=== PATIENT | female | born 1955 | race Caucasian/White ===

== ENCOUNTER → 2018-12-24 | Outpatient (CLI) | payer OTHER ==
--- NOTE | 2018-12-24 16:05 | XR ---
EXAMINATION TYPE: XR chest 2V DATE OF EXAM: 12/24/2018 COMPARISON: Prior chest x-ray 07/31/2013 HISTORY: COPD and shortness of breath TECHNIQUE: Frontal and lateral views of the chest are obtained. FINDINGS: There is hyperinflation compatible with underlying COPD. Patient is rotated. Aorta is dense . Thoracic spondylosis is present. Calcification in left axilla region is stable. There is no focal a ir space opacity, pleural effusion, or pneumothorax seen. The cardiac silhouette size is within norm al limits. The osseous structures are intact. IMPRESSION: No acute cardiopulmonary process.
== END | disposition home or self-care (01) ==
LOC: RADXRYALE 14:06
PROVIDERS: ATTEND Physician Assistant Medical
DX: J44.9 Chronic obstructive pulmonary disease, unspecified (principal); R06.02 Shortness of breath
CPT/HCPCS: 71046

== ENCOUNTER → 2020-04-27 | Outpatient (CLI) | payer MEDICARE ==
--- NOTE | 2020-04-28 06:55 | US ---
EXAMINATION TYPE: US thyroid st tissue head/neck DATE OF EXAM: 04/27/2020 COMPARISON: NONE CLINICAL HISTORY: E03.9 Hypothyroidism, unspecified. Hypothyroidism, patient on thyroid meds GLAND SIZE: Right Lobe: 3.5 x 1.5 x 1.4 cm Overall Parenchyma: heterogenous Left Lobe: 3.3 x 1.4 x 1.4 cm Overall Parenchyma: heterogeneous Isthmus Thickness: 0.2 cm NODULES RIGHT: # of nodules measured on right: 0 LEFT: # of nodules measured on left: 0 ISTHMUS: # of nodules measured in the isthmus: 0 Bilateral neck scanned, no evidence of lymphadenopathy. Heterogeneous small size thyroid without discrete solid or cystic nodule. IMPRESSION: As above.
== END | disposition home or self-care (01) ==
LOC: RADUSWWP 16:08
PROVIDERS: ATTEND Family Medicine
DX: R93.89 Abnormal findings on diagnostic imaging of other specified body structures (principal); E03.9 Hypothyroidism, unspecified
CPT/HCPCS: 76536

== ENCOUNTER → 2020-12-01 | Outpatient (CLI) | payer MEDICARE ==
--- NOTE | 2020-12-02 08:01 | BD ---
EXAMINATION TYPE: Axial Bone Density DATE OF EXAM: 12/01/2020 COMPARISON: NONE CLINICAL HISTORY: Disorder of bone. Height: 64.5 Weight: 101.5 FRAX RISK QUESTIONS: Alcohol (3 or more units per day): no Family History (Parent hip fracture): no Glucocorticoids (More than 3mos): no (Ex: prednisone, prednisolone, methylprednisolone, dexamethasone, and hydrocortisone). History of Fracture in Adulthood: yes Secondary Osteoporosis: 1. Type 1 Diabetes: no 2. Hyperthyroidism: no 3. Menopause before 45: no 4. Malnutrition: no 5. Chronic liver disease: no Rheumatoid Arthritis: no Current Tobacco Use: yes RISK FACTORS HISTORY OF: Surgery to Spine/Hip(right/left)/Wrist (right/left): no Family History of Osteoporosis: yes Active: no Diet low in dairy products/other sources of calcium: yes Postmenopausal woman: age 49 Lost more than 2 inches in height since high school: no MEDICATIONS: Lexapro, lisinopril, asthma meds, vitamins Thyroid Medications: synthroid How Lon years Additional History: EXAM MEASUREMENTS: Bone mineral densitometry was performed using the [employer] System. Bone mineral density as measured about the Lumbar spine is: ----- L1-L4(G/cm2): 0.744 T Score Values are as follows: ----- L2: -4.0 ----- L3: -3.0 ----- L4: -3.5 ----- L1-L4: -3.6 Bone mineral density : baseline Bone mineral density about the R hip (g/cm2): 0.470 Bone mineral density about the L hip (g/cm2): 0.526 T Score values are as follows: -----R Neck: -4.1 -----L Neck: -3.7 -----R Total: -4.4 -----L Total: -4.0 Bone mineral density : baseline IMPRESSION: Osteoporosis (T Score less than -2.5). There is increased fracture risk and therapy is usually indicated based on age. Re-Screen 1-2 years. NOTE: T-SCORE=SD OF THE YOUNG ADULT MEAN.
--- NOTE | 2020-12-04 11:09 | MM ---
Reason for exam: screening (asymptomatic). History: Patient is postmenopausal. Physical Findings: A clinical breast exam by your physician is recommended on an annual basis and results should be correlated with mammographic findings. MG 3D Screening Mammo W/Cad Bilateral CC and MLO view(s) were taken. There are scattered fibroglandular densities. Two nodules right upper slightly outer quadrant middle depth. Left focal asymmetry upper outer quadrant middle depth. ASSESSMENT: Incomplete: need additional imaging evaluation, BI-RAD 0 RECOMMENDATION: Special view mammogram of both breasts. If lesion persists on supplemental views, image directed ultrasound is recommended. [facility] will attempt to contact patient to return for supplemental views and ultrasound if indicated.
== END | disposition home or self-care (01) ==
LOC: RADMAMWWP 13:12
PROVIDERS: ATTEND Family Medicine
DX: Z12.31 Encounter for screening mammogram for malignant neoplasm of breast (principal); Z13.820 Encounter for screening for osteoporosis; M81.0 Age-related osteoporosis without current pathological fracture; Z78.0 Asymptomatic menopausal state
CPT/HCPCS: 77063; 77067; 77080

== ENCOUNTER → 2020-12-10 | Outpatient (CLI) | payer MEDICARE ==
--- NOTE | 2020-12-16 11:48 | MM ---
Reason for exam: additional evaluation requested from abnormal screening. Last mammogram was performed less than 1 month ago. History: Patient is postmenopausal. Family history of breast cancer in maternal aunt. Physical Findings: Nurse did not find any significant physical abnormalities on exam. MG 3D Work Up W/Cad NILA Bilateral spot compression CC, spot compression MLO, and LM view(s) were taken. Prior study comparison: December 01, 2020, bilateral MG 3d screening mammo w/cad. There are scattered fibroglandular densities. Finding: There are typically benign vascular, round calcifications. These results were verbally communicated with the patient and result sheet given to the patient on 12/10/20. ASSESSMENT: Probably benign, BI-RAD 3 RECOMMENDATION: Follow-up diagnostic mammogram of both breasts in 6 months.
== END | disposition home or self-care (01) ==
LOC: RADMAMWWP 14:14
PROVIDERS: ATTEND Family Medicine
DX: R92.1 Mammographic calcification found on diagnostic imaging of breast (principal); Z78.0 Asymptomatic menopausal state; Z80.3 Family history of malignant neoplasm of breast
CPT/HCPCS: 77066; G0279; 77062

== ENCOUNTER → 2021-02-16 | Outpatient (CLI) | payer MEDICARE ==
--- NOTE | 2021-02-16 15:51 | XR ---
EXAMINATION TYPE: XR chest 2V DATE OF EXAM: 02/16/2021 COMPARISON: 12/24/2018 TECHNIQUE: PA and lateral views submitted. HISTORY: Shortness of breath FINDINGS: The lungs are clear and there is no pneumothorax, pleural effusion, or focal pneumonia. Use hyperin flation. Heart size normal. No overt failure. Calcification overlying the left axilla. Degenerative c hange of the spine. IMPRESSION: 1. No acute process. 2. COPD
== END | disposition home or self-care (01) ==
LOC: RADXRYALE 14:47
PROVIDERS: ATTEND Physician Assistant Medical
DX: J44.9 Chronic obstructive pulmonary disease, unspecified (principal)
CPT/HCPCS: 71046

== ENCOUNTER → 2021-07-21 | Outpatient (CLI) | payer MEDICARE ==
--- NOTE | 2021-07-28 14:56 | MM ---
Reason for exam: follow-up at short interval from prior study. Last mammogram was performed 7 months ago. History: Patient is postmenopausal. Family history of breast cancer in maternal aunt. Physical Findings: Nurse did not find any significant physical abnormalities on exam. MG 3D Diag Mammo W/Cad NILA Bilateral CC and MLO view(s) were taken. Prior study comparison: December 10, 2020, bilateral MG 3d work up w/cad NILA. December 01, 2020, bilateral MG 3d screening mammo w/cad. The breast tissue is heterogeneously dense. This may lower the sensitivity of mammography. There are benign appearing vascular calcifications bilaterally. No significant new findings when compared with previous films. These results were verbally communicated with the patient and result sheet given to the patient on 07/21/21. ASSESSMENT: Benign, BI-RAD 2 RECOMMENDATION: Return to routine screening mammogram schedule for both breasts. Manage patient on a clinical basis.
== END | disposition home or self-care (01) ==
LOC: RADMAMWWP 13:08
PROVIDERS: ATTEND Family Medicine
DX: R92.1 Mammographic calcification found on diagnostic imaging of breast (principal); Z78.0 Asymptomatic menopausal state; Z80.3 Family history of malignant neoplasm of breast
CPT/HCPCS: 77066; G0279; 77062

== ENCOUNTER → 2024-01-01 | Outpatient (CLI) | payer MEDICARE ==
--- NOTE | 2024-01-01 18:06 | MM ---
Reason for Exam: Screening (asymptomatic). Last mammogram was performed 2 year(s) and 6 month(s) ago. Patient History: Menarche at age 12. First Full-Term at age 17. Postmenopausal. Patient has history of breast feeding. Maternal aunt had breast cancer. Risk Values: Minerva 5 year model risk: 1.2%. NCI Lifetime model risk: 3.9%. Prior Study Comparison: 12/01/2020 Bilateral Screening Mammogram, [facility]. 12/10/2020 Bilateral Diagnostic Mammogram, [facility]. 07/21/2021 Bilateral Diagnostic Mammogram, [facility]. Tissue Density: There are scattered areas of fibroglandular density. Findings: Analyzed By CAD. Unchanged asymmetric density superior right MLO view. Benign vascular and oil cyst calcifications. There is no suspicious group of microcalcifications or new suspicious mass in either breast. Overall Assessment: Benign, BI-RAD 2 Management: Screening Mammogram of both breasts in 1 year. . Patient should continue monthly self-breast exams. A clinical breast exam by your physician is recommended on an annual basis. This exam should not preclude additional follow-up of suspicious palpable abnormalities. Note on Minerva scores and lifetime risk: 1. A Minerva score greater than 3% is considered moderate risk. If this is the case, consider specialist referral to assess eligibility for a risk reducing agent. 2. If overall lifetime risk for the development of breast cancer is 20% or higher, the patient may qualify for future screening with alternating mammogram and breast MRI. Electronically signed and approved by: Alexander Nelson M.D. Radiologist
--- NOTE | 2024-01-02 13:42 | BD ---
EXAMINATION TYPE: Axial Bone Density DATE OF EXAM: 01/01/2024 CLINICAL HISTORY: 68 years old Female. ICD-10 CODE: M81.0 age related osteoporosis Height: 64 Weight: 100 FRAX RISK QUESTIONS: Alcohol (3 or more units per day): no Family History (Parent hip fracture): no Glucocorticoids (More than 3mos): no (Ex: prednisone, prednisolone, methylprednisolone, dexamethasone, and hydrocortisone). History of Fracture in Adulthood: yes Secondary Osteoporosis: no 1. Type 1 Diabetes: no 2. Hyperthyroidism: no 3. Menopause before 45: no 4. Malnutrition: no 5. Chronic liver disease: no Rheumatoid Arthritis: no Current Tobacco Use: yes RISK FACTORS HISTORY OF: Surgery to Spine/Hip(right/left)/Wrist (right/left): no MEDICATIONS: Thyroid Medications: levothyroxine How Lon years EXAM MEASUREMENTS: Bone mineral densitometry was performed using the [employer] System. Bone mineral density as measured about the Lumbar spine is: ----- L1-L4(G/cm2): 0.760 T Score Values are as follows: ----- L1: -4.0 ----- L2: -3.7 ----- L3: -3.0 ----- L4: -3.5 ----- L1-L4: -3.5 Z Score Values are as follows: ----- L1: -1.7 ----- L2: -1.4 ----- L3: -0.7 ----- L4: -1.2 ----- L1-L4: -1.2 Bone mineral density has: increased 2.2 % since study of: 12.01.2020 Bone mineral density about the R hip (g/cm2): 0.459 Bone mineral density about the L hip (g/cm2): 0.470 T Score values are as follows: -----R Neck: -4.0 -----L Neck: -4.0 -----R Total: -4.4 -----L Total: -4.3 Z Score values are as follows: -----R Neck: -2.0 -----L Neck: -1.9 -----R Total: -2.5 -----L Total: -2.4 Bone mineral density has: decreased -1.1 % since study of: 6.1.2020 FRAX%s: The graph provided illustrates a 45.0% chance for a major osteoporotic fx and a 32.1% chance for the hips probability for fx in 10 years time. IMPRESSION: Osteoporosis (T Score less than -2.5). There is increased fracture risk and therapy is usually indicated based on age. Re-Screen 1-2 years. NOTE: T-SCORE=SD OF THE YOUNG ADULT MEAN.
== END | disposition home or self-care (01) ==
LOC: RADMAMWWP 15:01
PROVIDERS: ATTEND Family Medicine
DX: Z12.31 Encounter for screening mammogram for malignant neoplasm of breast (principal); M81.0 Age-related osteoporosis without current pathological fracture; Z78.0 Asymptomatic menopausal state; Z80.3 Family history of malignant neoplasm of breast
CPT/HCPCS: 77063; 77067; 77080